=== PATIENT | male | born 1970 | race Caucasian/White ===

== ENCOUNTER 2021-08-29 20:28 | Emergency (ER) | payer OTHER ==
[~2021-08-29 20:28] MED LIST: COZAAR 25MG TAB25 MG PO; COZAAR100 MG PO; FENOFIBRATE160 MG PO; FISH OIL 1,0001 EACH PO; HCTZ25 MG PO; LEVAQUIN500 MG PO; METFORMIN HCL500 MG PO; NORCO 5-325 TA1 EACH PO; PREDNISONE 20MG20 MG PO; VOLTAREN **OUT75 MG PO; ZOCOR10 MG PO
[2021-08-29 22:33] LABS: BASOPHIL 0.9 % (0-2); EOSINOPHIL 5.2 % (0-5); HCT 49.8 % (42.0-52.0); HGB 16.6 g/dl (13.2-18.0); LYMPHOCYTE 44.9 % (15-48); MCH 27.9 pg (25.0-31.0); MCHC 33.3 g/dL (32.0-36.0); MCV 83.7 fL (78.0-100.0); MONOCYTE 6.7 % (0-12); MPV 12.2 fL (6.0-9.5); NEUTROPHIL 42.1 % (41-80); NRBC 0; PLT 180 K/uL (150-400); RBC 5.95 M/uL (4.70-6.00); RDW 14.1 % (11.5-14.0); WBC 8.5 K/uL (4.0-10.5)
[2021-08-29 22:43] LABS: BILIRUBIN - TOTAL 0.6 mg/dL (0.2-1.0); BUN/CREAT RATIO (CALC) 22.6 RATIO; CREATININE 1.15 mg/dL (0.67-1.17); GLOBULIN (CALCULATION) 3.5 g/dL; TOTAL PROTEIN 7.5 g/dL (6.4-8.2)
[2021-08-29 22:44] LABS: BILIRUBIN NEGATIVE (NEGATIVE); BLOOD NEGATIVE Ery/uL (NEGATIVE); CLARITY CLEAR (CLEAR); COLOR YELLOW (YELLOW); GLUCOSE (U) NORMAL (NORMAL); LEUKOCYTES NEGATIVE Leu/uL (NEGATIVE); NITRITE NEGATIVE (NEGATIVE); PROTEIN NEGATIVE (NEGATIVE); SPECIFIC GRAVITY 1.025 (1.001-1.030); UROBILINOGEN 0.2 mg/dL (0.2-1.0)
[2021-08-30] MEDS ORDERED: ONDANSETRON ODT4 MG PO (00:56)
[2021-08-30] MEDS ORDERED: PERCOCET 5-3251 EACH PO (00:56)
[2021-08-30] MEDS ORDERED: PROTONIX 40MG T40 MG PO (00:56)
== END 2021-08-30 01:47 | disposition home or self-care (01) ==
LOC: FER 20:28
PROVIDERS: Internal Medicine
DX: R10.11 Right upper quadrant pain (principal)
CPT/HCPCS: 36415; 80053; 81003; 83690; 85025; J1170; J2405